=== PATIENT | male | born 1960 | race Two or more races ===

== ENCOUNTER 2020-12-06 14:51 | Inpatient (IN) | payer MEDICAID ==
[~2020-12-06] VITALS: Ht 165.1 cm; Wt 79.4 kg
--- NOTE | 2020-12-06 15:25 | NUR ---
bib self c/o cough, fever, and sob x 13 days, covid +. vs checked,. hooked on monitor satting 88%, placed on 6L of o2 went up to 96%. iv access started blood draw done sent to lab.
[2020-12-06] MEDS ORDERED: CEFTRIAXONE 1 G in IV D5W 50 ML IV ONE (15:30)
[2020-12-06] MEDS ORDERED: DEXAMETHASONE SOD PHOSPHATE 10 MG/ML VIAL IV ONE (15:30)
[2020-12-06] MEDS ORDERED: AZITHROMYCIN 500 MG in IV D5W 250 ML IV ONE (15:30)
--- NOTE | 2020-12-06 15:30 | NUR ---
covid swab done sent to lab
[2020-12-06] MEDS ORDERED: CEFTRIAXONE 1GM BAG (ER ONLY) 50 ML IV ONE (15:50)
[2020-12-06] MEDS ORDERED: DEXAMETHASONE SOD PHOSPHATE 10 MG/ML VIAL ONE (15:50)
[2020-12-06 16:04] LABS: CALCIUM, SERUM 8.7 mg/dL (8.5-10.1); CARBON DIOXIDE 25 mmol/L (21-32); CHLORIDE 101 mmol/L (98-107); CREATININE 1.1 mg/dL (0.6-1.3); GLUCOSE 250 mg/dL (74-106); POTASSIUM 4.3 mmol/L (3.5-5.1); SODIUM SERUM 134 mmol/L (136-145); UREA NITROGEN, BLOOD 27 mg/dL (7-18)
[2020-12-06 16:09] LABS: BASOPHILS % (AUTO) 0.4 % (0.0-2.0); HEMOGLOBIN 17.4 g/dL (13.5-17.5); NEUTROPHILS # (AUTO) 7.5 /CMM (1.8-8.9); WHITE BLOOD COUNT (AUTO) 9.4 K/uL (4.3-11.0)
[2020-12-06 16:11] LABS: HEMATOCRIT 51 % (39-51); LYMPHOCYTES # (AUTO) 0.9 /CMM (0.8-4.8); LYMPHOCYTES % (AUTO) 9.4 % (20.0-44.0); MEAN CORPUSCULAR HGB CONC 34 g/dl (31.0-36.0); MEAN CORPUSCULAR VOLUME 89 fL (80-96); MONOCYTES % (AUTO) 10.4 % (2.0-12.0); NEUTROPHILS % (AUTO) 79.8 % (43.0-81.0); PLATELET COUNT (AUTO) 199 /CMM (150-450)
[2020-12-06 16:13] LABS: ALANINE AMINOTRANSFERASE 84 U/L (12-78); ALBUMIN 2.8 g/dL (3.4-5.0); ALKALINE PHOSPHATASE 86 U/L (46-116); ASPARTATE AMINOTRANSFERASE 40 U/L (15-37); BILIRUBIN,DIRECT 0.2 mg/dL (0.0-0.2); BILIRUBIN,TOTAL 0.5 mg/dL (0.2-1.0); TOTAL PROTEIN, SERUM 7.4 g/dL (6.4-8.2)
[2020-12-06] MEDS ORDERED: METF-440 PO (16:20)
[2020-12-06] MEDS ORDERED: [UNRECOGNIZED DRUG - REMARK] PO (16:20)
[2020-12-06] MEDS ORDERED: MELO-107 PO (16:20)
--- NOTE | 2020-12-06 16:33 | NUR ---
pt unable to provide urine specimen at the moment.
--- NOTE | 2020-12-06 16:53 | NUR ---
COVID RESULT: POSITIVE
[2020-12-06 16:58] LABS: CREATINE KINASE, TOTAL 54 U/L (39-308); FERRITIN 904 ng/mL (8-388)
[2020-12-06 16:59] LABS: C-REACTIVE PROTEIN 1.6 mg/dL (0.0-0.9)
[2020-12-06] MEDS ORDERED: NS 0.9% IV ONE (17:00)
[2020-12-06 17:04] LABS: BAND % (MANUAL) 5 % (0.0-5.0); LYMPHOCYTES % (MANUAL) 13 % (16-48); MONOCYTES % (MANUAL) 8 % (0-11.0); NEUTROPHILS % (MANUAL) 74 (42-76)
[2020-12-06 17:20] LABS: D-DIMER 0.48 mg/L(FEU (0.17-0.50)
[2020-12-06 17:37] LABS: BILIRUBIN,URINE Negative (NEGATIVE); COLOR,URINE YELLOW (YELLOW); LEUKOCYTE ESTERASE ,URINE Negative (NEGATIVE); NITRITE, URINE Negative (NEGATIVE); PH,URINE 5.5 (5.0-8.0); PROTEIN,URINE 30 mg/dl (NEGATIVE); UGLUCOSE Negative (NEGATIVE); UROBILINOGEN,URINE 0.2 EU/dL (0.2)
[2020-12-06 17:41] LABS: BACTERIA,URINE Rare /HPF (None Seen); RBC,URINE NONE SEEN /HPF (0-2); SQUAMOUS EPITHELIAL CELL,UR Few /HPF (None Seen); WBC,URINE NONE SEEN /HPF (0-3)
[2020-12-06] MEDS ORDERED: ZOLPIDEM TARTRATE 5 MG TABLET PO PRN (18:30)
[2020-12-06] MEDS ORDERED: DEXTROSE 50%-WATER 50 ML DISP.SYRIN IV PRN (18:30)
[2020-12-06] MEDS ORDERED: Z GUARD REMEDY 2 OZ OINT TP PRN (18:30)
[2020-12-06] MEDS ORDERED: HYDROCODONE/APAP 5/325MG TABLET PO PRN (18:30)
[2020-12-06] MEDS ORDERED: ONDANSETRON HCL/PF 4 MG/2 ML VIAL IVP PRN (18:30)
[2020-12-06] MEDS ORDERED: MAGNESIUM HYDROXIDE 30 ML UDC PO PRN (18:30)
[2020-12-06] MEDS ORDERED: MAG HYDROX/AL HYDROX/SIMETH 30 ML UDC PO PRN (18:30)
[2020-12-06] MEDS ORDERED: ACETAMINOPHEN 325 MG TABLET PO PRN (18:30)
--- NOTE | 2020-12-06 19:45 | NUR ---
rec'd report; pt here for sob; covid+, pt aaox4, pt on 4l nc sat 95%. denies any sob. pt admitted to transition area, pt ambulatory steady gait, continent b&b, vss. nad. wctm
[2020-12-06] MEDS ORDERED: REMDESIVIR (CHARGED) 200 MG, *LOADING DOSE 1 EA in IV NS 0.9% 210 ML IV ONE (20:00)
[2020-12-06] MEDS ORDERED: ENOXAPARIN SODIUM 40 MG/0.4 ML DISP.SYRIN SQ SCH (21:00)
[2020-12-06] MEDS ORDERED: ENOXAPARIN SODIUM 40 MG/0.4 ML DISP.SYRIN SQ ONE (22:34)
[2020-12-06] MEDS: BLOOD SUGAR DIAGNOSTIC 1 EACH STRIP IN SCH (22:50)
[2020-12-07 05:29] LABS: BASOPHILS % (AUTO) 0.1 % (0.0-2.0); HEMATOCRIT 51 % (39-51); HEMOGLOBIN 17.2 g/dL (13.5-17.5); LYMPHOCYTES # (AUTO) 1.2 /CMM (0.8-4.8); LYMPHOCYTES % (AUTO) 11.1 % (20.0-44.0); MEAN CORPUSCULAR HGB CONC 34 g/dl (31.0-36.0); MEAN CORPUSCULAR VOLUME 91 fL (80-96); MONOCYTES # (AUTO) 0.9 /CMM (0.1-1.30); MONOCYTES % (AUTO) 8.1 % (2.0-12.0); NEUTROPHILS # (AUTO) 8.5 /CMM (1.8-8.9); NEUTROPHILS % (AUTO) 80.7 % (43.0-81.0); PLATELET COUNT (AUTO) 177 /CMM (150-450); RED BLOOD CELL COUNT(AUTO) 5.61 MIL/uL (4.5-6.0); WHITE BLOOD COUNT (AUTO) 10.5 K/uL (4.3-11.0)
[2020-12-07 06:06] LABS: ALBUMIN 2.4 g/dL (3.4-5.0); BILIRUBIN,DIRECT 0.2 mg/dL (0.0-0.2); BILIRUBIN,TOTAL 0.4 mg/dL (0.2-1.0); CALCIUM, SERUM 8.1 mg/dL (8.5-10.1); CREATININE 0.8 mg/dL (0.6-1.3); MAGNESIUM 2.2 mg/dL (1.8-2.4); PHOSPHORUS 2.9 mg/dL (2.5-4.9); TOTAL PROTEIN, SERUM 6.3 g/dL (6.4-8.2)
[2020-12-07 06:15] LABS: THYROID STIMULATING HORMONE 0.353 uIU/mL (0.358-3.74)
[2020-12-07] MEDS ORDERED: PANTOPRAZOLE 40 MG TABLET.DR PO SCH (07:30)
--- NOTE | 2020-12-07 07:34 | NUR ---
RECEIVED REPORT FROM CLARITZA RYAN FOR VENKAT. PT IS AAOX3, NOT IN RESPIRATORY DISTRESS, V/S STABLE, KEPT RESTED AND COMFORTABLE. WILL CONTINUE TO MONITOR.
[2020-12-07] MEDS ORDERED: PANTOPRAZOLE 40 MG TABLET.DR PO ONE (07:40)
[2020-12-07] MEDS: BLOOD SUGAR DIAGNOSTIC 1 EACH STRIP IN SCH ×3 (07:45→17:11)
[2020-12-07] MEDS: INSULIN REGULAR, HUMAN 100 UNIT/ML 3 ML VIAL SQ PRN ×3 (07:48→17:12)
[2020-12-07] MEDS ORDERED: DEXAMETHASONE SOD PHOSPHATE 10 MG/ML VIAL ONE (08:16)
--- NOTE | 2020-12-07 08:28 | NUR ---
BOTTOM BLEACHER AT BEDSIDE FOR XRAY.
[2020-12-07] MEDS: METFORMIN 500 MG TABLET PO SCH ×2 (08:37→16:57)
[2020-12-07] MEDS ORDERED: DEXAMETHASONE SOD PHOSPHATE 10 MG/ML VIAL IV SCH (09:00)
[2020-12-07] MEDS ORDERED: INSULIN REGULAR, HUMAN 100 UNIT/ML 10 ML VIAL ONE (12:27)
--- NOTE | 2020-12-07 13:35 | NUR ---
TECH AT BEDSIDE FOR 2D ECHO.
[2020-12-07] MEDS ORDERED: CEFTRIAXONE 1 G in IV D5W 50 ML IV SCH (15:00)
[2020-12-07] MEDS ORDERED: CEFTRIAXONE 1GM BAG (ER ONLY) 50 ML IV ONE (15:05)
[2020-12-07 15:22] LABS: C-REACTIVE PROTEIN 1.1 mg/dL (0.0-0.9)
[2020-12-07] MEDS ORDERED: AZITHROMYCIN 500 MG in IV D5W 250 ML IV SCH (16:00)
--- NOTE | 2020-12-07 16:24 | NUR ---
AT BEDSIDE FOR EVAL.
--- NOTE | 2020-12-07 16:34 | NUR ---
TRANSPORT CALLED [facility] ETA IS 20 MINS.
--- NOTE | 2020-12-07 16:36 | NUR ---
CALLED [facility] FOR DR. HOFFMAN TO CALL DR. AUSTIN
--- NOTE | 2020-12-07 17:05 | NUR ---
DARIANA [phone] FAX [phone]
--- NOTE | 2020-12-07 17:06 | NUR ---
REPORT GIVEN TO BRIANDA BELTRAN PT RAJESH TO [facility].
--- NOTE | 2020-12-07 17:29 | NUR ---
REPORT GIVEN TO CLARITZA GAFFNEY FOR VENKAT
[2020-12-07 17:50] VITALS: BP 135/65
[2020-12-07] MEDS ORDERED: REMDESIVIR (CHARGED) 100 MG in IV NS 0.9% 100 ML IV SCH (20:00)
== END 2020-12-07 17:29 | disposition short-term general hospital (02) | DRG 720 ==
LOC: ER 14:56 → TRANSITION 17:23
DX: A41.89 Other specified sepsis (principal); U07.1 COVID-19; J12.82 Pneumonia due to coronavirus disease 2019; I10 Essential (primary) hypertension; J96.01 Acute respiratory failure with hypoxia; Z79.84 Long term (current) use of oral hypoglycemic drugs; Z79.899 Other long term (current) drug therapy; E44.1 Mild protein-calorie malnutrition; E11.9 Type 2 diabetes mellitus without complications
CPT/HCPCS: 36415; 71045-TC; 80048-TC; 80061-TC; 80076-TC; 81001; 82550-TC; 82728-TC; 82962-TC; 83605-TC; 83615-TC; 83735-TC; 84100-TC; 84443-TC; 84484-TC; 85025-TC; 85378-TC; 85610-TC; 85730-TC; 86140-TC; 87040-TC; 87081-TC; 87086-TC; 93308-TC; A4216; C9803; G0378; J0456; J0696; J1100; J1650; J1815; J7030; J7050; J7060

== ENCOUNTER 2021-04-30 10:41 | Emergency (ER) | payer MEDICAID ==
[~2021-04-30] VITALS: Ht 162.6 cm; Wt 82.1 kg
[~2021-04-30 10:41] MED LIST: MELO-107 PO; METF-440 PO; [UNRECOGNIZED DRUG - REMARK] PO
[2021-04-30] MEDS ORDERED: MORPHINE SULFATE INJ 2 MG/ML DISP.SYRIN IV ONE (11:00)
[2021-04-30] MEDS ORDERED: IV NS 0.9% 1,000 ML BAG IV ONE (11:00)
[2021-04-30] MEDS ORDERED: ONDANSETRON HCL/PF 4 MG/2 ML VIAL IVP ONE (11:00)
[2021-04-30] MEDS ORDERED: MORPHINE SULFATE INJ 4 MG/ML DISP.SYRIN ONE (11:06)
[2021-04-30] MEDS ORDERED: ONDANSETRON HCL/PF 4 MG/2 ML VIAL ONE (11:06)
[2021-04-30 11:08] LABS: BASOPHILS # (AUTO) 0.1 /CMM (0.0-0.2); BASOPHILS % (AUTO) 0.6 % (0.0-2.0); EOSINOPHILS % (AUTO) 5.8 % (0.0-6.0); HEMATOCRIT 47 % (39-51); HEMOGLOBIN 15.9 g/dL (13.5-17.5); LYMPHOCYTES # (AUTO) 2.3 /CMM (0.8-4.8); LYMPHOCYTES % (AUTO) 24.7 % (20.0-44.0); MEAN CORPUSCULAR HGB CONC 34 g/dl (31.0-36.0); MEAN CORPUSCULAR VOLUME 89 fL (80-96); MONOCYTES # (AUTO) 1.4 /CMM (0.1-1.30); MONOCYTES % (AUTO) 14.7 % (2.0-12.0); NEUTROPHILS % (AUTO) 54.2 % (43.0-81.0); PLATELET COUNT (AUTO) 161 /CMM (150-450); WHITE BLOOD COUNT (AUTO) 9.2 K/uL (4.3-11.0)
--- NOTE | 2021-04-30 11:18 | NUR ---
Patient came in to the er c/o "Lower back pain started yesterday now going to front +pain w/urine". On room air, breathing evenly and unlabored. Connected to the monitor and pulse ox. kept comfortable, will continue to monitor accordingly.
[2021-04-30 11:23] LABS: CALCIUM, SERUM 8.7 mg/dL (8.5-10.1); CREATININE 1.1 mg/dL (0.6-1.3); POTASSIUM 4.1 mmol/L (3.5-5.1)
[2021-04-30 11:29] LABS: ALBUMIN 3.1 g/dL (3.4-5.0); BILIRUBIN,DIRECT 0.2 mg/dL (0.0-0.2); BILIRUBIN,TOTAL 0.6 mg/dL (0.2-1.0); TOTAL PROTEIN, SERUM 6.7 g/dL (6.4-8.2)
[2021-04-30 12:24] LABS: BILIRUBIN,URINE SMALL (NEGATIVE); COLOR,URINE DARK YELLOW (YELLOW); LEUKOCYTE ESTERASE ,URINE Negative (NEGATIVE); NITRITE, URINE Negative (NEGATIVE); PROTEIN,URINE Trace mg/dl (NEGATIVE); UGLUCOSE Negative (NEGATIVE)
[2021-04-30 12:27] LABS: BACTERIA,URINE None seen /HPF (None Seen); RBC,URINE 0-2 /HPF (0-2); SQUAMOUS EPITHELIAL CELL,UR Rare /HPF (None Seen); WBC,URINE 0-2 /HPF (0-3)
--- NOTE | 2021-04-30 13:00 | NUR ---
No acute distress family at bedside both updated w/plan of care. Await dispo
[2021-04-30] MEDS ORDERED: IBUP-1955 PO (14:21)
[2021-04-30 14:48] VITALS: BP 134/57
--- NOTE | 2021-04-30 14:49 | NUR ---
Patient discharged to home in stable condition. Written and verbal after care instructions given. Patient verbalizes understanding of instruction.
== END 2021-04-30 14:50 | disposition home or self-care (01) ==
LOC: ER 10:45
DX: R10.32 Left lower quadrant pain (principal); R74.01 Elevation of levels of liver transaminase levels; E11.9 Type 2 diabetes mellitus without complications; Z79.84 Long term (current) use of oral hypoglycemic drugs; Z79.899 Other long term (current) drug therapy
CPT/HCPCS: 36415; 74176; 80048; 80076; 81001; 83690; 85025; 87086; 96361; 96374; 96375; 99284; J2270; J2405; J7030

== ENCOUNTER 2022-01-02 12:41 | Emergency (ER) | payer MEDICAID ==
[~2022-01-02] VITALS: Ht 162.6 cm; Wt 72.6 kg
[~2022-01-02 12:41] MED LIST changes: +IBUP-1955 PO
[2022-01-02 12:56] VITALS: BP 130/80
--- NOTE | 2022-01-02 13:00 | NUR ---
PT SEEN AND EXAMINED BY .
[2022-01-02] MEDS ORDERED: TETRAcaine 5 ML BOTTLE EACHEYE ONE (13:30)
[2022-01-02] MEDS ORDERED: GENT5DRO4 RIGHTEYE (13:35)
[2022-01-02] MEDS ORDERED: DORZ10DR19 RIGHTEYE (13:35)
--- NOTE | 2022-01-02 13:42 | NUR ---
Patient discharged to home in stable condition. Written and verbal after care instructions given. Patient verbalizes understanding of instruction.
== END 2022-01-02 13:42 | disposition home or self-care (01) ==
LOC: ER 12:43
DX: H40.9 Unspecified glaucoma (principal); E11.36 Type 2 diabetes mellitus with diabetic cataract; H26.9 Unspecified cataract; I10 Essential (primary) hypertension; Z79.84 Long term (current) use of oral hypoglycemic drugs; Z79.899 Other long term (current) drug therapy